=== PATIENT | female | born 1975 | race Asian ===

== ENCOUNTER 2017-05-15 16:32 | Emergency (ER) | payer OTHER, MEDICAID ==
[~2017-05-15] VITALS: Ht 152.4 cm; Wt 48.1 kg
[2017-05-15 16:54] VITALS: BP_SYST 123
--- NOTE | 2017-05-15 17:13 | NUR ---
Patient to ER bed 6 to gown for evaluation. Side rails up. Report given to Maria Antonia EASTMAN.
--- NOTE | 2017-05-15 17:15 | NUR ---
Pt complains of yellow skin to palms of bilateral hands and body, denies fever, n/v, diarrhea, eating or taking any medications for the past 2 weeks. Pt was on azithromycin for a week last week but PCP states that is not a side effect. No other injuries/complaints per pt or noted.
--- NOTE | 2017-05-15 17:17 | NUR ---
ER PHI Almeida at bedside examining patient.
[2017-05-15 17:43] LABS: BILIRUBIN,URINE NEGATIVE (NEGATIVE); BLOOD, URINE NEGATIVE (NEGATIVE); COLOR,URINE YELLOW (YELLOW); GLUCOSE,URINE NEGATIVE (NEGATIVE); KETONES,URINE NEGATIVE (NEGATIVE); LEUKOCYTE ESTERASE ,URINE NEGATIVE (NEGATIVE); NITRITE, URINE NEGATIVE (NEGATIVE); PH,URINE 7.5 (5.0-8.0); PROTEIN URINE NEGATIVE (NEGATIVE); UROBILINOGEN,URINE 0.2 (0.2-1.0)
[2017-05-15 17:44] LABS: CLARITY/URINE HAZY (CLEAR)
[2017-05-15 17:46] LABS: CREATININE 0.66 mg/dL (0.55-1.30); POTASSIUM 3.2 mmol/L (3.5-5.1)
[2017-05-15 17:50] LABS: TOTAL BILIRUBIN 0.3 mg/dL (0.0-1.0)
[2017-05-15 17:54] LABS: BASOPHILS # (AUTO) 0.1 K/uL (0.0-0.2); BASOPHILS % (AUTO) 0.6 % (0.0-2.0); EOSINOPHILS # (AUTO) 0.7 K/uL (0.0-0.4); HEMATOCRIT 40.1 % (36-48); HEMOGLOBIN 13.5 g/dL (12.0-16.0); LYMPHOCYTES # (AUTO) 2.6 K/uL (1.0-5.5); LYMPHOCYTES % (AUTO) 29.2 % (20.5-51.5); MEAN CORPUSCULAR HEMOGLOBIN 29 pg (27-31); MEAN CORPUSCULAR HGB CONC 34 % (32-36); MEAN CORPUSCULAR VOLUME 87 fL (79.0-98.0); MONOCYTES # (AUTO) 0.6 K/uL (0.0-1.0); MONOCYTES % (AUTO) 6.8 % (1.7-9.3); NEUTROPHILS # (AUTO) 5.1 K/uL (1.8-7.7); NEUTROPHILS % (AUTO) 55.4 % (40.0-70.0); PLATELET COUNT (AUTO) 253 K/uL (130-430); RED BLOOD CELL COUNT(AUTO) 4.63 MIL/uL (4.2-6.2); RED CELL DISTRIBUTION WIDTH 11.6 % (9.0-15.0); WHITE BLOOD COUNT (AUTO) 9.1 K/uL (4.8-10.8)
[2017-05-15] MEDS ORDERED: POTASSIUM CHLORIDE 10 MEQ TAB.PRT.SR PO ONE (18:00)
--- NOTE | 2017-05-15 18:00 | NUR ---
Pt was given potassium, tolerated it well.
--- NOTE | 2017-05-15 18:12 | NUR ---
Patient given written and verbal discharge instructions and verbalizes understanding. ER MD discussed with patient the results and treatment provided. Patient in stable condition. ID arm band removed. Rx of erythromycin given. Patient educated on pain management and to follow up with PMD. Pain Scale 0. Opportunity for questions provided and answered.
[2017-05-15 18:14] VITALS: BP_SYST 120
== END 2017-05-15 18:13 | disposition home or self-care (01) ==
LOC: SED 16:32
DX: R17 Unspecified jaundice (principal); H00.12 Chalazion right lower eyelid; E87.6 Hypokalemia; R03.0 Elevated blood-pressure reading, without diagnosis of hypertension
CPT/HCPCS: 36415; 80053; 81003; 81025; 83690-TC; 85025; 99284

== ENCOUNTER 2017-05-17 15:07 | Emergency (ER) | payer OTHER, MEDICAID ==
[~2017-05-17] VITALS: Ht 152.4 cm; Wt 48.1 kg
[2017-05-17 15:07] VITALS: BP_SYST 116
[2017-05-17 17:09] LABS: BILIRUBIN,URINE NEGATIVE (NEGATIVE); BLOOD, URINE NEGATIVE (NEGATIVE); CLARITY/URINE CLEAR (CLEAR); COLOR,URINE YELLOW (YELLOW); GLUCOSE,URINE NEGATIVE (NEGATIVE); KETONES,URINE NEGATIVE (NEGATIVE); LEUKOCYTE ESTERASE ,URINE NEGATIVE (NEGATIVE); NITRITE, URINE NEGATIVE (NEGATIVE); PROTEIN URINE NEGATIVE (NEGATIVE); UROBILINOGEN,URINE 0.2 (0.2-1.0)
[2017-05-17 17:40] VITALS: BP_SYST 127
== END 2017-05-17 17:40 | disposition home or self-care (01) ==
LOC: SED 15:07
DX: R10.11 Right upper quadrant pain (principal)
CPT/HCPCS: 76700-TC; 81003; 81025; 99285

== ENCOUNTER 2020-10-18 09:02 | Emergency (ER) | payer MEDICAID, OTHER ==
[~2020-10-18] VITALS: Ht 152.4 cm; Wt 49.9 kg
[2020-10-18 09:12] VITALS: BP_SYST 112
--- NOTE | 2020-10-18 09:15 | NUR ---
AMBULATED TO BED 8
--- NOTE | 2020-10-18 09:15 | NUR ---
Pt came to ER for abdominal pain and black stools x1 week. Pt rates pain 2/10 today but 7/10 after eating. Currently resting in [facility] at this time, no distress, VSS
--- NOTE | 2020-10-18 09:15 | NUR ---
ER at bedside examining patient.
[2020-10-18 10:10] LABS: BASOPHILS % (AUTO) 0.4 % (0.0-2.0); EOSINOPHILS # (AUTO) 0.2 K/uL (0.0-0.4); EOSINOPHILS % (AUTO) 2.6 % (0.0-4.0); HEMATOCRIT 39.1 % (36-48); HEMOGLOBIN 12.8 g/dL (12.0-16.0); LYMPHOCYTES % (AUTO) 30.1 % (20.5-51.5); MEAN CORPUSCULAR HEMOGLOBIN 30 pg (27-31); MEAN CORPUSCULAR HGB CONC 33 % (32-36); MEAN CORPUSCULAR VOLUME 90 fL (79.0-98.0); MONOCYTES # (AUTO) 0.5 K/uL (0.0-1.0); MONOCYTES % (AUTO) 7.2 % (1.7-9.3); NEUTROPHILS % (AUTO) 59.7 % (40.0-70.0); PLATELET COUNT (AUTO) 250 K/uL (130-430); RED BLOOD CELL COUNT(AUTO) 4.34 MIL/uL (4.2-6.2); RED CELL DISTRIBUTION WIDTH 12.4 % (9.0-15.0); WHITE BLOOD COUNT (AUTO) 6.7 K/uL (4.8-10.8)
[2020-10-18 10:12] LABS: BILIRUBIN,URINE NEGATIVE (NEGATIVE); BLOOD, URINE NEGATIVE (NEGATIVE); CLARITY/URINE CLEAR (CLEAR); COLOR,URINE YELLOW (YELLOW); GLUCOSE,URINE NEGATIVE (NEGATIVE); KETONES,URINE NEGATIVE (NEGATIVE); LEUKOCYTE ESTERASE ,URINE NEGATIVE (NEGATIVE); NITRITE, URINE NEGATIVE (NEGATIVE); PROTEIN URINE NEGATIVE (NEGATIVE); UROBILINOGEN,URINE 0.2 (0.2-1.0)
[2020-10-18 10:13] LABS: CALCIUM 8.7 mg/dL (8.4-11.0); CREATININE 0.71 mg/dL (0.55-1.30); POTASSIUM 3.9 mmol/L (3.5-5.1)
[2020-10-18 10:18] LABS: ALBUMIN 3.7 g/dL (3.4-4.8); TOTAL BILIRUBIN 0.6 mg/dL (0.0-1.0)
[2020-10-18] MEDS ORDERED: FAMO40TA7 PO (11:21)
[2020-10-18 11:33] VITALS: BP_SYST 112
--- NOTE | 2020-10-18 11:34 | NUR ---
Patient given written and verbal discharge instructions and verbalizes understanding. ER MD discussed with patient the results and treatment provided. Patient in stable condition. ID arm band removed. Rx of Famotiine given. Patient educated on pain management and to follow up with PMD. Pain Scale 0/10. Opportunity for questions provided and answered. Medication side effect fact sheet provided.
== END 2020-10-18 11:34 | disposition home or self-care (01) ==
LOC: SED 09:02
DX: K27.9 Peptic ulcer, site unspecified, unspecified as acute or chronic, without hemorrhage or perforation (principal); G89.29 Other chronic pain; R10.13 Epigastric pain; Z79.899 Other long term (current) drug therapy
CPT/HCPCS: 36415; 76700-TC; 80053; 81003; 82150-TC; 83690-TC; 85025; 99284